=== PATIENT | male | born 1995 | race Caucasian/White ===

== ENCOUNTER 2018-06-15 19:28 | Emergency (ER) | payer OTHER ==
[~2018-06-15] VITALS: Ht 177.8 cm; Wt 86.2 kg
--- OUTSIDE RECORDS SUMMARY | ~2018-06-15 | XMS | Clinical Summary ---
Demographics + + + | Address | [address] | | | [place] [address] | + + + | Home Phone | | + + + | Preferred Language | Unknown | + + + | Marital Status | | + + + | Scientologist Affiliation | Unknown | + + + | Race | Unknown | + + + | Ethnic Group | Unknown | + + + Author + + + | Author | [facility] | + + + | Organization | [facility] | + + + | Address | Unknown | + + + | Phone | Unavailable | + + + Support + + +---------+ + | Name | Relationship | Address | Phone | + + +---------+ + | Starr Solis | ECON | Unknown | | + + +---------+ + Care Team Providers + +------+ + | Care Dredge Pipe Operator Name | Role | Phone | + +------+ + | Luciano Tony MD | PP | | + +------+ + Allergies No Known Allergies Current Medications No known medications Active Problems Not on file Social History + +-------+ +--------+------+ | Tobacco Use | Types | Packs/Day | Years | Date | | | | | Used | | + +-------+ +--------+------+ | Never Smoker | | | | | + +-------+ +--------+------+ + +---+---+---+ | Smokeless Tobacco: | | | | | Never Used | | | | + +---+---+---+ + + +---------+ + | Alcohol Use | Drinks/We | oz/Week | Comments | | | ek | | | + + +---------+ + | No | | | | + + +---------+ + + + + | Sex Assigned at | Date Recorded | | | | + + + | Not on file | | + + + Last Filed Vital Signs + + + + | Vital Sign | Reading | Time Taken | + + + + | Blood Pressure | 115/68 | 03/07/2015 10:55 AM PDT | + + + + | Pulse | 70 | 03/07/2015 10:55 AM PDT | + + + + | Temperature | 36.9 C (98.4 F) | 03/07/2015 10:55 AM PDT | + + + + | Respiratory Rate | 17 | 03/07/2015 10:55 AM PDT | + + + + | Oxygen Saturation | 98% | 03/07/2015 10:55 AM PDT | + + + + | Inhaled Oxygen | - | - | | Concentration | | | + + + + | Weight | 86.2 kg (190 lb) | 03/07/2015 8:01 AM PDT | + + + + | Height | - | - | + + + + | Body Mass Index | - | - | + + + + Plan of Treatment Not on file Results Not on filefrom Last 3 Months Insurance +-------+--------+ +------+-------+---------+ | Payer | Benefi | Subscriber | Type | Phone | Address | | | t Plan | ID | | | | | | / | | | | | | | Group | | | | | +-------+--------+ +------+-------+---------+ | [employer] | [employer] | [id number] | | | | | | - GEHA | | | | | +-------+--------+ +------+-------+---------+ + +--------+ +--------+ + + | Guarantor Name | Accoun | Relation to | Date | Phone | Billing Address | | | t Type | Patient | of | | | | | | | | | | + +--------+ +--------+ + + | IGGY MURRAY | Person | Self [birth year] Home: | [id number] | | | al/Fam | | 1995 | [phone] | [place] | | | ruth[address] | | [phone] | + +--------+ +--------+ + +"
--- OUTSIDE RECORDS SUMMARY | ~2018-06-15 | XMS | Clinical Summary ---
Demographics + + + | Address | [address] | | | [place] [address] | + + + | Home Phone | | + + + | Preferred Language | Unknown | + + + | Marital Status | | + + + | Moravian Affiliation | Unknown | + + + | Race | Unknown | + + + | Ethnic Group | Unknown | + + + Author + + + | Author | [facility] | + + + | Organization | [facility] | + + + | Address | Unknown | + + + | Phone | Unavailable | + + + Support + + +---------+ + | Name | Relationship | Address | Phone | + + +---------+ + | Starr Solis | ECON | Unknown | | + + +---------+ + Care Team Providers + +------+ + | Care Treasury Analyst Name | Role | Phone | + [...] +-------+--------+ +------+-------+---------+ | A[employer] | AET[employer] | [id number] | | | | | | - [...] | Self | [birth year] | Home: | [id number] | | | al/Fam | | 1995 | [phone] | [place] | | | [place] | | | [phone] | + +--------+ +--------+ + +"
[~2018-06-15 19:28] MED LIST: NORCO 5-325 TA1 EACH PO
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
[2018-06-15] MEDS ORDERED: ACETAMINOPHEN-1 EAC1 PO (20:20)
== END 2018-06-15 20:30 | disposition home or self-care (01) ==
LOC: ED 19:28
DX: S93.401D Sprain of unspecified ligament of right ankle, subsequent encounter (principal); V29.9XXD Motorcycle rider (driver) (passenger) injured in unspecified traffic accident, subsequent encounter; F17.200 Nicotine dependence, unspecified, uncomplicated
CPT/HCPCS: 99283